=== PATIENT | female | born 1975 | race African-American/Black ===

== ENCOUNTER 2017-01-05 15:54 | Emergency (ER) | payer MEDICAID ==
[~2017-01-05] VITALS: Ht 167.6 cm; Wt 97.0 kg
[~2017-01-05 15:54] MED LIST: OXYC1SOL5 PO; PREN0.01 PO
[2017-01-05 15:56] VITALS: BP 143/84; PULSE 103; RESP 20; TEMP 98.9; O2SAT 99
--- NOTE | 2017-01-05 16:17 | PD ---
Physical Exam Date Seen by Provider: Jan 05, 2017 Time Seen by Provider: 16:14 Narrative 41-year-old black female presents to emergency department for evaluation of left knee pain. She states that she's had a partial ACL and medial meniscus tear area she states that this had occurred several years ago and she never had surgery to correct this. She had been walking up the stairs at work when she had gradual worsening pain in her left knee. She states the pain is now severe. She cannot bear weight. She denies any direct injury. Vital signs reviewed. Pt waiting for bed placement. Data Data Last Documented VS Vital Signs Date Time Temp Pulse Resp B/P (MAP) Pulse Ox O2 Delivery O2 Flow Rate FiO2 01/05/17 15:56 98.9 103 20 143/84 (103) 99 Room Air [facility] Medical Record Reviewed: No Supervised Visit with DAGOBERTO: Levy Jacob Jan 05, 2017 16:17
--- NOTE | 2017-01-05 17:18 | RADRPT ---
EXAM DATE/TIME: 01/05/2017 16:27 [place] COMPARISON: No previous studies available for comparison. INDICATIONS : Knee pain from walking up stairs, pain at inferior patella. MEDICAL HISTORY : None. SURGICAL HISTORY : None. ENCOUNTER: Initial ACUITY: 1 day PAIN SCORE: 0/10 LOCATION: Left knee FINDINGS: Four view examination of the left knee demonstrates no evidence of fracture or dislocation. Bony min eralization is normal. The tibial and femoral articular surfaces are intact. There are several smal l lucent areas seen in the patella; on lateral projection, these appear to be located in the posterio r cortex. The suprapatellar soft tissues have a normal configuration. CONCLUSION: 1. No evidence of fracture or dislocation. 2. 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 This report was verified electronically.
[2017-01-05] MEDS ORDERED: KETOROLAC TROMETHAMINE 60 MG/2 ML (IM) VIAL IM ONE (17:45)
--- NOTE | 2017-01-05 18:12 | PD ---
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 has a hard time going up stairs due to pain. partially alleviated by rest. greatest pain points to inferior patella area. pain 8/10, worse with activity, and denies any recent trauma. also denies any associated fever/cough/n/v/d/abd pain patient has a history of left knee pain, that originally started a year ago when she had partial acl tear and meniscus injury as well. however due to insurance reasons she never had it repaired.... 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) Diminished Hearing: No ?: Unknown LMP: 12/31 Menopausal: No : 6 Para: 3 Miscarriage: 1 : 1 Past Surgical History Eye Surgery: Yes Gynecologic Surgery: Yes (BREAST AUGMENTATION) Social History Alcohol Use: No Tobacco Use: No Substance Use: No Allergies-Medications (Allergen,Severity, Reaction): Coded Allergies: No Known Allergies (Verified Adverse Reaction, Unknown, 01/05/17) Reported Meds & Prescriptions Reported Meds & Active Scripts Active Review of Systems Except as stated in HPI: all other systems reviewed are Neg General / Constitutional: No: Fever Eyes: No: Visual changes HENT: No: Headaches Cardiovascular: No: Chest Pain or Discomfort Respiratory: No: Shortness of Breath Gastrointestinal: No: Abdominal Pain Genitourinary: No: Dysuria Musculoskeletal: Positive: Limited ROM, Pain (left knee) Skin: No Rash Neurologic: No: Weakness Psychiatric: No: Depression Endocrine: No: Polydipsia Hematologic/Lymphatic: No: Easy Bruising Physical Exam Narrative GENERAL: SKIN: Warm and dry. HEAD: Atraumatic. Normocephalic. EYES: Pupils equal and round. No scleral icterus. No injection or drainage. ENT: No nasal bleeding or discharge. Mucous membranes pink and moist. NECK: Trachea midline. No JVD. CARDIOVASCULAR: Regular rate and rhythm. RESPIRATORY: No accessory muscle use. Clear to auscultation. Breath sounds equal bilaterally. GASTROINTESTINAL: Abdomen soft, non-tender, nondistended. MUSCULOSKELETAL: Extremities without clubbing, cyanosis, or edema. No obvious deformities. ttp to inferior patella NEUROLOGICAL: Awake and alert. No obvious cranial nerve deficits. Motor grossly within normal limits. Five out of 5 muscle strength in the arms and legs. Normal speech. PSYCHIATRIC: Appropriate mood and affect; insight and judgment normal. Data Data Last Documented VS Vital Signs Date Time Temp Pulse Resp B/P (MAP) Pulse Ox O2 Delivery O2 Flow Rate FiO2 01/05/17 15:56 98.9 103 20 143/84 (103) 99 Room Air Orders Orders Knee, Complete (4vws) (01/05/17 16:17) Ice/Cold Pack (01/05/17 16:17) Ketorolac Inj (Toradol Inj) (01/05/17 17:45) ^ Knee Immobilizer (01/05/17 18:12) [facility] Medical Decision Making Medical Screen Exam Complete: Yes Emergency Medical Condition: Yes Medical Record Reviewed: Yes Differential Diagnosis knee fx v dislocation v strain ligaments Narrative Course xray neg for fx or dislocation. Diagnosis Primary Impression: left knee pain (r/o ligamentous injury vs chondromalacia) Patient Instructions: General Instructions, Knee Sprain (ED) Additional Instructions: please take order to outpatient mri for knee examination, then follow up at [place] for any further referrals Scripts Naproxen DR (Naproxen EC) 375 Mg Tabdr 375 MG PO BID, #20 TAB 0 Refills Prov: Raghu Cox MD 01/05/17 Tramadol (Ultram) 50 Mg Tab 50 MG PO Q6H Y for PAIN, #20 TAB 0 Refills Prov: Raghu Cox MD 01/05/17 Disposition: 01 DISCHARGE HOME Condition: Stable Raghu Cox MD Jan 05, 2017 18:12
[2017-01-05] MEDS ORDERED: NAPR375T4 PO (18:16)
[2017-01-05] MEDS ORDERED: TRAM50 PO (18:16)
== END 2017-01-05 18:43 | disposition home or self-care (01) ==
LOC: NEPD 15:54
DX: M25.562 Pain in left knee (principal)
CPT/HCPCS: 73564; 96372; 99284; J1885